=== PATIENT | female | born 1995 | race Caucasian/White ===

== ENCOUNTER → 2017-11-30 | Outpatient (CLI) | payer OTHER ==
[~2017-11-30] MED LIST: CARB100CH; CARB200ER; ESCI10 PO; FAMO20 PO; HYDSUL200 PO; LAMO100; LAMO25; LEVE500; TOPI25 PO; Tylenol325 MG PO; ZONI100
[2017-12-01 08:57] LABS: G. vaginalis (DNA Probe) Positive (NEGATIVE); T. vaginalis (DNA Probe) Negative (NEGATIVE)
[2017-12-01 08:58] LABS: Candida species (DNA Probe) Negative (NEGATIVE)
== END ==
LOC: LAB 14:43
PROVIDERS: Obstetrics & Gynecology
DX: N76.0 Acute vaginitis (principal)
CPT/HCPCS: 87480; 87510; 87660

== ENCOUNTER → 2019-12-18 | Outpatient (CLI) | payer OTHER | END | disposition home or self-care (01) | LOC: LAB 11:43 → LAB SHORT 11:43 | DX: L08.0 Pyoderma (principal) | CPT/HCPCS: 87070; 87075; 87076; 87205 ==

== ENCOUNTER 2024-12-29 18:18 | Emergency (ER) | payer BC ==
[~2024-12-29] VITALS: Ht 160 cm; Wt 104.3 kg
[2024-12-29 18:37] VITALS: BP 139/83
== END 2024-12-29 19:31 | disposition home or self-care (01) ==
LOC: ER 18:18
DX: S61.210A Laceration without foreign body of right index finger without damage to nail, initial encounter (principal); Z88.1 Allergy status to other antibiotic agents; Z79.899 Other long term (current) drug therapy; W26.8XXA Contact with other sharp object(s), not elsewhere classified, initial encounter
CPT/HCPCS: 12001; 99282-25